=== PATIENT | female | born 1995 | race Caucasian/White ===

== ENCOUNTER 2017-09-12 20:07 | Emergency (ER) | payer BC ==
[2017-09-12 20:24] VITALS: BP 103/66
--- NOTE | 2017-09-12 20:49 | UC ---
Headache HPI - HPI Summary HPI Summary: 22 yo WF c/o PAZ associated with fever x1 day. PAZ is frontal throbbing and pressure-like pain was 8/10 but came down to a 6 after taking tylenol and Aleve. - History Of Current Complaint Chief Complaint: UCGeneralIllness Stated Complaint: HEADACHE,FEVER Time Seen by Provider: 09/12/17 20:32 Hx Obtained From: Patient Hx Last Menstrual Period: 09/09/17 Onset/Duration: Sudden Onset Onset Of Symptoms: Sudden Initially Headache Was: Initial Pain Scale(0-10)= - 8/10 Timing: Constant Character: Dull, Throbbing, Pressure - Allergies/Home Medications Allergies/Adverse Reactions: Allergies Allergy/AdvReac Type Severity Reaction Status Date / Time No Known Allergies Allergy Verified 09/12/17 20:24 Home Medications: Home Medications Acetaminophen [Acetaminophen Extra Stren] 500 mg PO Q6H PRN 09/12/17 [History Confirmed 09/12/17] Amphetamine-Dextroamphetamine [Adderall 10 mg-] 1 tab PO DAILY PRN 09/12/17 [ History Confirmed 09/12/17] Isotretinoin [Amnesteem] 80 mg PO BID 09/12/17 [History Confirmed 09/12/17] Naproxen Sodium [Naproxen Sodium 220 mg] 220 mg PO Q6H PRN 09/12/17 [History Confirmed 09/12/17] Norgestimate-Ethinyl Estradiol [Ortho-Cyclen 0.25-35 mg-Mcg] 1 tab PO DAILY 11/25 [History Confirmed 09/12/17] PMH/Surg Hx/FS Hx/Imm Hx Previously Healthy: Yes - Surgical History Surgical History: Yes Surgery Procedure, Year, and Place: FRENECTOMY, OFFICE. 2015 WISDOM TEETH EXTRACTIONS, OFFICE. THYROID CYST REMOVAL - Social History Alcohol Use: Occasionally Substance Use Type: None Smoking Status (MU): Never Smoked Tobacco - Immunization History Most Recent Influenza Vaccination: unknown Most Recent Tetanus Shot: UTD Review of Systems Constitutional: Fever Skin: Negative Eyes: Negative ENT: Negative Respiratory: Negative Cardiovascular: Negative Gastrointestinal: Negative Genitourinary: Negative Motor: Negative Neurovascular: Negative Musculoskeletal: Myalgia Neurological: Headache Psychological: Negative All Other Systems Reviewed And Are Negative: Yes Physical Exam Triage Information Reviewed: Yes Appearance: No Pain Distress, Thin Vital Signs: Initial Vital Signs Temp 37.1 C 09/12/17 20:18 Pulse 109 09/12/17 20:18 Resp 16 09/12/17 20:18 BP 103/66 09/12/17 20:18 Pulse Ox 99 09/12/17 20:18 Eye Exam: Normal ENT Exam: Normal Dental Exam: Normal Neck exam: Normal Neck: Positive: 1 Respiratory Exam: Normal Respiratory: Positive: Lungs clear Cardiovascular Exam: Normal Abdominal Exam: Normal Musculoskeletal Exam: Normal Neurological Exam: Normal Psychological Exam: Normal Skin Exam: Normal Headache Course/Dx - Course Course Of Treatment: Toradol and zofran administerd in UC for nausea and PAZ. Upon further questioning, pt stated she felt "achy all over" with the fever and PAZ, rapid flu was done and came back positive for Flu A. Tamiflu prescribed - Differential Dx/Diagnosis Provider Diagnoses: influenza, Headache Discharge - Discharge Plan Condition: Stable Disposition: HOME Prescriptions: Oseltamivir Phosphate [Tamiflu] 75 mg PO BID 5 Days #10 cap Referrals: Haylee Alex NP [Primary Care Provider] - Additional Instructions: as tolerated
[2017-09-12] MEDS ORDERED: Ketorolac INJ* 30 MG/ML 1 ML VIAL IM ONE (21:03)
[2017-09-12] MEDS ORDERED: Ondansetron ODT TAB* 4 MG PO ONE (21:05)
== END 2017-09-12 21:44 | disposition home or self-care (01) ==
LOC: UCEAST 20:07
DX: J11.1 Influenza due to unidentified influenza virus with other respiratory manifestations (principal); R51 Headache; Z72.89 Other problems related to lifestyle
CPT/HCPCS: 87502; 96372; 99212; A9270-GY; G0463; J1885